=== PATIENT | female | born 1990 | race Hispanic/Latino ===

== ENCOUNTER 2018-05-21 21:56 | Emergency (ER) | payer SELFPAY ==
[2018-05-21] MEDS ORDERED: NA CHLORIDE 0.9% 1,000 ML ONE (22:54)
[2018-05-21] MEDS ORDERED: ACETAMINOPHEN 500 MG TAB ONE (22:54)
[2018-05-21 23:19] LABS: Absolute Lymphocytes (CBC) 0.5 K/uL (0.7-4.9); Absolute Monocytes 0.5 K/uL (0.1-1.3); Absolute Neutrophil 3.9 K/uL (1.8-8.0); Basophils % 0.2 % (0-1.3); Eosinophils % 0.1 % (0-4.4); MPV 8.2 fL (7.6-11.3); Monocytes % 10.6 % (3.3-12.3); RBC Red Blood Cell Count 4.46 M/uL (3.86-4.86)
[2018-05-21 23:20] LABS: Protime INR 1.35
[2018-05-21 23:33] LABS: ALT/SGPT 19 U/L (12-78); AST/SGOT 17 U/L (15-37); Albumin 3.6 g/dL (3.4-5.0); Alkaline Phosphatase 90 U/L (45-117); BUN Blood Urea Nitrogen 8 mg/dL (7-18); Bicarbonate 22 mmol/L (21-32); Bilirubin Direct < 0.1 mg/dL (0-0.2); Bilirubin Total 0.2 mg/dL (0.2-1.0); Creatine Phosphokinase 70 U/L (26-192); Glucose Level 100 mg/dL (74-106); Lipase 81 U/L (73-393); Potassium 3.2 mmol/L (3.5-5.1); Protein, Total 7.5 g/dL (6.4-8.2); Sodium Level 138 mmol/L (136-145)
[2018-05-21 23:40] LABS: Urine Blood NEGATIVE (NEG); Urine Glucose NEGATIVE (NEG); Urine Protein NEGATIVE (NEG)
[2018-05-21 23:44] LABS: Urine Bacteria <20 /HPF (<20); Urine Culture Reflex Order NOT NEEDED; Urine RBC <5 /HPF (NONE SEEN)
--- NOTE | 2018-05-22 01:59 | ER ---
Nurse's Notes [facility] Name: Meka Del Castillo Age: 27 yrs Sex: Female : 1990 Arrival Date: 05/21/2018 Time: 22:00 Bed 5 Private MD: None, None Diagnosis: Fever presenting with conditions classified elsewhere;Influenza due to other identified influenza virus Presentation: 05/21 22:22 Presenting complaint: Patient states: "today at work I felt light headed and my throat jd3 hurt, but mostly my back is hurting me really bad. I threw up before I came here.". Transition of care: patient was not received from another setting of care. Onset of symptoms was May 21, 2018. Risk Assessment: Do you want to hurt yourself or someone else? Patient reports no desire to harm self or others. Initial Sepsis Screen: Does the patient meet any 2 criteria? No. Patient's initial sepsis screen is negative. Does the patient have a suspected source of infection? No. Patient's initial sepsis screen is negative. Care prior to arrival: None. 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 - Social history:: Smoking status: Patient uses tobacco products, denies chronic smoking, but will smoke occasionally. - Ebola Screening: : Patient negative for fever greater than or equal to 101.5 degrees Fahrenheit, and additional compatible Ebola Virus Disease symptoms. Screenin:14 Abuse screen: Denies threats or abuse. Nutritional screening: No deficits noted. ea Tuberculosis screening: No symptoms or risk factors identified. Fall Risk IV access (20 points). Assessment: 22:43 General: Appears uncomfortable, Behavior is calm. Pain: Complains of pain in abdomen. ea Neuro: Level of Consciousness is awake, alert, obeys commands, Oriented to person, place, time. Cardiovascular: Patient's skin is warm and dry. Respiratory: Airway is patent Respiratory effort is even, unlabored, Respiratory pattern is regular, symmetrical. GI: Reports lower abdominal pain, upper abdominal pain. Derm: Skin is dry, Skin is pale, Skin temperature is warm. 23:41 Reassessment: Patient and/or family updated on plan of care and expected duration. Pain ea level reassessed. Patient is alert, oriented x 3, equal unlabored respirations, skin warm/dry/pink. 05/22 00:43 Reassessment: Patient and/or family updated on plan of care and expected duration. Pain ea level reassessed. Patient is alert, oriented x 3, equal unlabored respirations, skin warm/dry/pink. 01:40 Reassessment: Patient and/or family updated on plan of care and expected duration. Pain ea level reassessed. Patient is alert, oriented x 3, equal unlabored respirations, skin warm/dry/pink. 02:23 Reassessment: Patient appears in no apparent distress at this time. Patient and/or jd3 family updated on plan of care and expected duration. Pain level reassessed. Patient is alert, oriented x 3, equal unlabored respirations, skin warm/dry/pink. Vital Signs: 05/21 22:24 BP 124 / 76; Pulse 138; Resp 18 S; Temp 100.0(O); Pulse Ox 100% on R/A; Weight 99.79 kg jd3 (R); Height 5 ft. 3 in. (160.02 cm) (R); Pain 10/10; 23:15 BP 107 / 60; Pulse 106; Resp 19; Pulse Ox 99% ; rr5 05/22 00:44 BP 110 / 70; Pulse 94; Resp 18; Pulse Ox 100% on R/A; ea 02:23 BP 92 / 54; Pulse 88; Resp 17 S; Pulse Ox 98% on R/A; jd3 05/21 22:24 Body Mass Index 38.97 (99.79 kg, 160.02 cm) jd3 ED Course: 05/21 22:00 Patient arrived in ED. mr 22:00 None, None is Private Physician. mr 22:23 Triage completed. jd3 22:25 Arm band placed on. jd3 22:31 Gilson Boateng MD is Attending Physician. gs 22:34 Amber Casey, ROB is Primary Nurse. ea 22:44 Patient has correct armband on for positive identification. Bed in low position. Call ea light in reach. Side rails up X2. 22:44 Inserted saline lock: 20 gauge in right antecubital area, using aseptic technique. ea Blood collected. 05/22 01:13 CT completed. Patient tolerated procedure well. Patient moved to CT via wheelchair. vm2 Patient moved back from CT. 01:31 CT Abd/Pelvis - W/Contrast In Process Unspecified. EDMS 02:24 No provider procedures requiring assistance completed. IV discontinued, intact, jd3 bleeding controlled, No redness/swelling at site. Pressure dressing applied. Administered Medications: 05/21 22:50 Drug: Acetaminophen 1000 mg Route: PO; rr5 05/22 02:26 Follow up: Response: No adverse reaction jd3 05/21 23:12 Drug: NS 0.9% 1000 ml Route: IV; Rate: 1 bolus; Site: right antecubital; ea 05/22 02:26 Follow up: Response: No adverse reaction; IV Status: Completed infusion jd3 Outcome: 01:58 Discharge ordered by MD. nixon 02:24 Discharged to home ambulatory, with family. jd3 02:24 Condition: stable 02:24 Discharge instructions given to patient, family, Instructed on discharge instructions, follow up and referral plans. medication usage, Demonstrated understanding of instructions, follow-up care, medications, Prescriptions given X 1. 02:26 Patient left the ED. jd3 Signatures: Dispatcher [employer] ABDIRAHMAN Ector Waleska Lynch Natalia 2 Amber Casey RN RN ea Starr, Gregory, MD MD gs Davies, Jonathon, RN RN jd3 Roque, Raymond, RN RN rr5
--- NOTE | 2018-05-22 01:59 | EDPHYS ---
Physician Documentation [facility] Name: Meka Del Castillo Age: 27 yrs Sex: Female : 1990 Arrival Date: 05/21/2018 Time: 22:00 Bed 5 Private MD: None, None ED Physician Gilson Boateng HPI: 05/22 01:51 This 27 yrs old Female presents to ER via Ambulatory with complaints of Back gs Pain, Abdominal Pain. 01:51 The patient presents with pain that is acute. The symptoms are located in the low back. gs Onset: The symptoms/episode began/occurred acutely, yesterday. The pain does not radiate. Associated signs and symptoms: Pertinent positives: fever. Modifying factors: The patient symptoms are alleviated by nothing, the patient symptoms are aggravated by nothing. Severity of symptoms: At their worst the symptoms were moderate, in the emergency department the symptoms are unchanged. The patient has not experienced similar symptoms in the past. 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 - Social history:: Smoking status: Patient uses tobacco products, denies chronic smoking, but will smoke occasionally. - Ebola Screening: : Patient negative for fever greater than or equal to 101.5 degrees Fahrenheit, and additional compatible Ebola Virus Disease symptoms. ROS: 05/22 01:51 All other systems are negative. gs Exam: 01:51 Head/Face: Normocephalic, atraumatic. Eyes: Pupils equal round and reactive to light, gs extra-ocular motions intact. Lids and lashes normal. Conjunctiva and sclera are non-icteric and not injected. Cornea within normal limits. Periorbital areas with no swelling, redness, or edema. ENT: Nares patent. No nasal discharge, no septal abnormalities noted. Tympanic membranes are normal and external auditory canals are clear. Oropharynx with no redness, swelling, or masses, exudates, or evidence of obstruction, uvula midline. Mucous membranes moist. Neck: Trachea midline, no thyromegaly or masses palpated, and no cervical lymphadenopathy. Supple, full range of motion without nuchal rigidity, or vertebral point tenderness. No Meningismus. Chest/axilla: Normal chest wall appearance and motion. Nontender with no deformity. No lesions are appreciated. 01:51 Respiratory: Lungs have equal breath sounds bilaterally, clear to auscultation and percussion. No rales, rhonchi or wheezes noted. No increased work of breathing, no retractions or nasal flaring. 01:51 Skin: Warm, dry with normal turgor. Normal color with no rashes, no lesions, and no evidence of cellulitis. MS/ Extremity: Pulses equal, no cyanosis. Neurovascular intact. Full, normal range of motion. Neuro: Awake and alert, GCS 15, oriented to person, place, time, and situation. Cranial nerves II-XII grossly intact. Motor strength 5/5 in all extremities. Sensory grossly intact. Cerebellar exam normal. Normal gait. 01:51 Constitutional: The patient appears alert, awake, uncomfortable. 01:51 Cardiovascular: Rate: tachycardic, Rhythm: regular, Pulses: no pulse deficits are appreciated. 01:51 Abdomen/GI: Palpation: mild abdominal tenderness, in all quadrants. 01:51 Back: pain, that is moderate, of the lumbar area. Vital Signs: 05/21 22:24 BP 124 / 76; Pulse 138; Resp 18 S; Temp 100.0(O); Pulse Ox 100% on R/A; Weight 99.79 kg jd3 (R); Height 5 ft. 3 in. (160.02 cm) (R); Pain 10/10; 23:15 BP 107 / 60; Pulse 106; Resp 19; Pulse Ox 99% ; rr5 03 00:44 BP 110 / 70; Pulse 94; Resp 18; Pulse Ox 100% on R/A; ea 02:23 BP 92 / 54; Pulse 88; Resp 17 S; Pulse Ox 98% on R/A; jd3 05/21 22:24 Body Mass Index 38.97 (99.79 kg, 160.02 cm) jd3 MDM: 05/21 22:35 Patient medically screened. 05/22 01:51 Differential diagnosis: Epidural or Perispinal Abcess Pyelonephritis flu. Data gs reviewed: vital signs, nurses notes, lab test result(s), and as a result, I will discharge patient. Counseling: I had a detailed discussion with the patient and/or guardian regarding: the historical points, exam findings, and any diagnostic results supporting the discharge/admit diagnosis, lab results, radiology results, the need for outpatient follow up. Response to treatment: the patient's symptoms have markedly improved after treatment, patient is well hydrated. and as a result, I will discharge patient. 05/21 22:38 Order name: Basic Metabolic Panel 05/21 22:38 Order name: Blood Culture Adult (2) 05/21 22:38 Order name: CBC with Diff; Complete Time: 00:01 05/21 22:38 Order name: CPK; Complete Time: 00: 05/21 22:38 Order name: Lactate; Complete Time: 00: 05/21 22:38 Order name: LFT's; Complete Time: 00:01 05/21 22:38 Order name: Lipase; Complete Time: 00:01 05/21 22:38 Order name: Procalcitonin; Complete Time: 00:58 05/21 22:38 Order name: Protime (+inr); Complete Time: 00:01 05/21 22:38 Order name: Urine Microscopic Only; Complete Time: 00: 05/21 22:38 Order name: Strep; Complete Time: 00:01 05/21 22:38 Order name: Influenza Screen (a \T\ B); Complete Time: 00:01 05/21 22:38 Order name: Basic Metabolic Panel; Complete Time: 00:01 EDMS 05/21 23:36 Order name: Urine Dipstick--Ancillary (enter results); Complete Time: 00:01 ar5 05/21 22:38 Order name: Urine Test (obtain specimen); Complete Time: 23:13 05/21 22:38 Order name: Cardiac monitoring; Complete Time: 23:13 05/21 22:38 Order name: IV Saline Lock - Large Bore; Complete Time: 23:13 05/21 22:38 Order name: Labs collected and sent; Complete Time: 23:13 05/21 22:38 Order name: O2 Per Protocol; Complete Time: 23:13 05/21 22:38 Order name: O2 Sat Monitoring; Complete Time: 23:13 05/21 22:38 Order name: Urine Dipstick-Ancillary (obtain specimen); Complete Time: 23:13 05/21 22:38 Order name: CT Abd/Pelvis - W/Contrast 05/21 22:38 Order name: EKG - Nurse/Tech; Complete Time: 23:11 05/21 23:36 Order name: Urine --Ancillary (enter results); Complete Time: 00:01 ar5 05/21 23:45 Order name: Throat Culture EDWI Administered Medications: 05/21 22:50 Drug: Acetaminophen 1000 mg Route: PO; rr5 05/22 02:26 Follow up: Response: No adverse reaction jd3 05/21 23:12 Drug: NS 0.9% 1000 ml Route: IV; Rate: 1 bolus; Site: right antecubital; ea 05/22 02:26 Follow up: Response: No adverse reaction; IV Status: Completed infusion jd3 Disposition: 05/22/18 01:58 Discharged to Home. Impression: Fever presenting with conditions classified elsewhere, Influenza due to other identified influenza virus. - Condition is Stable. - Discharge Instructions: Fever, Adult, Influenza, Adult, [id number]. - Prescriptions for Tylenol- Codeine #4 300-60 mg Oral Tablet - take 1 tablet by ORAL route every 6 hours As needed; 6 tablet. - Medication Reconciliation Form, Thank You Letter, Antibiotic Education, Prescription Opioid Use form. - Follow up: Private Physician; When: 2 - 3 days; Reason: Re-evaluation by your physician. Signatures: Dispatcher [employer] EDWI Amber Casey RN RN ea Starr, Gregory, MD MD gs Davies, Jonathon, RN RN jd3 Roque, Raymond, RN RN rr5 Corrections: (The following items were deleted from the chart) 02: 01:58 05/22/2018 01:58 Discharged to Home. Impression: Fever presenting with conditions jd3 classified elsewhere; Influenza due to other identified influenza virus. Condition is Stable. Forms are Medication Reconciliation Form, Thank You Letter, Antibiotic Education, Prescription Opioid Use. Follow up: Private Physician; When: 2 - 3 days; Reason: Re-evaluation by your physician.
--- NOTE | 2018-05-22 12:02 | RAD REPORT ---
EXAM DESCRIPTION: CT Abdomen and Pelvis With Intravenous Contrast CLINICAL HISTORY: The patient is 27 years old and is Female; back pain; Abd pain TECHNIQUE: Axial computed tomography images of the abdomen and pelvis with intravenous contrast. S agittal and coronal reformatted images were created and reviewed. This CT exam was performed using one or more of the following dose reduction techniques: automated exposure control, adjustment of t he mA and/or kV according to patient size, and/or use of iterative reconstruction technique. COMPARISON: No relevant prior studies available. FINDINGS: Artifacts: The exam is suboptimal secondary to motion artifact. Lung bases: Unremarkable. No mass. No consolidation. ABDOMEN: Liver: Unremarkable. No mass. Gallbladder and bile ducts: No calcified stones. No ductal dilation. Pancreas: No ductal dilation. No mass. Spleen: Unremarkable. Adrenals: Unremarkable. No mass. Kidneys and ureters: Unremarkable. No solid mass. No hydronephrosis. Stomach and bowel: The stomach is moderately distended with oral contrast. Oral contrast noted t hroughout the small bowel. A moderate amount of stool is present throughout the colon. There is no mu cosal thickening or evidence of bowel obstruction. PELVIS: Appendix: The appendix is normal in caliber without surrounding inflammation. Bladder: The bladder is moderately distended. Reproductive: A 2.5 cm right adnexal low attenuating lesion is present. The uterus and left ovar y are unremarkable. ABDOMEN and PELVIS: Intraperitoneal space: Unremarkable. No free air. No significant fluid collection. Bones/joints: No acute fracture. Soft tissues: The soft tissues are normal. Vasculature: Unremarkable. No abdominal aortic aneurysm. Lymph nodes: Unremarkable. No enlarged lymph nodes. IMPRESSION: 1. No acute findings on this contrasted CT of the abdomen and pelvis to explain the pa tient's symptoms. 2. Findings suggest a right ovarian cyst. No follow-up imaging is recommended. Electronically signed by: Delores Harper MD 05/22/2018 1:35 AM CDT Due to temporary technical issues with the PACS/Fluency reporting system, reports are being signed by the in house radiologist as a courtesy to ensure prompt reporting. The interpreting radiologist is f ully responsible for the content of the report.
--- NOTE | 2018-05-23 10:32 | EKG ---
Test Date: 2018-05-21 Test Time: 22:50:38 Mis Specialist: RR MEASUREMENT RESULTS: Intervals: Rate: 102 SC: 150 QRSD: 84 QT: 342 QTc: 445 Matador: P: 32 SC: 150 QRS: 21 T: 36 INTERPRETIVE STATEMENTS: Sinus tachycardia Otherwise normal ECG No previous ECG available for comparison Electronically Signed On 05-22-18 09:37:31 CDT by Jeffery Robertson
== END 2018-05-22 02:26 | disposition home or self-care (01) ==
LOC: ER 21:56
DX: J10.1 Influenza due to other identified influenza virus with other respiratory manifestations (principal); Z72.0 Tobacco use
CPT/HCPCS: 36415; 74177; 80048; 80076; 81003; 81015; 81025; 82550; 83605; 83690; 84145; 85025; 85610; 87040; 87070; 87081; 87804; 93005; 96360; 96361; 99284; J7030; Q9967

== ENCOUNTER 2021-10-30 13:13 | Emergency (ER) | payer SELFPAY ==
--- NOTE | 2021-10-30 13:42 | EDPHYS ---
Physician Documentation [facility] Name: Meka Del Castillo Age: 31 yrs Sex: Female : 1990 Arrival Date: 10/30/2021 Time: 13:16 Bed Waiting Private MD: ED Physician Valerie Odell HPI: 10/30 18:45 This 31 yrs old Female presents to ER via Ambulatory with complaints of kb Allergic Reaction, Hives. 18:45 The patient presents with itching, rash. Onset: The symptoms/episode began/occurred 5 kb day(s) ago. Associated signs and symptoms: Pertinent positives: rash. Possible causes: The patient has no known obvious cause for the symptoms. At home the patient or guardian has treated the symptoms with nothing. Severity of symptoms: At their worst the symptoms were moderate in the emergency department the symptoms are unchanged. The patient has experienced similar episodes in the past. The patient has not recently seen a physician. Pt reports itchy rash to entire body that started a few days ago. States she has gotten this rash about 5 times before and always after visiting her mother when she returns from [place]. States she drank a drink that was brought back from [place] prior to rash starting. Normally gets a steroid shot and it goes away. 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 - Social history:: Smoking status: Patient denies any tobacco usage or history of. ROS: 18:43 Constitutional: Negative for fever, chills, and weight loss. kb 18:43 Skin: Positive for rash, diffusely. 18:43 All other systems are negative. Exam: 18:43 Constitutional: This is a well developed, well nourished patient who is awake, alert, kb and in no acute distress. Head/Face: Normocephalic, atraumatic. ENT: Moist Mucous membranes Cardiovascular: Regular rate and rhythm with a normal S1 and S2. No gallops, murmurs, or rubs. No pulse deficits. Respiratory: Respirations even and unlabored. No increased work of breathing. Talking in full sentences MS/ Extremity: Pulses equal, no cyanosis. Neurovascular intact. Full, normal range of motion. Neuro: Awake and alert, GCS 15, oriented to person, place, time, and situation. Moves all extremities. Normal gait. Psych: Awake, alert, with orientation to person, place and time. Behavior, mood, and affect are within normal limits. 18:43 Skin: rash a mild rash is noted, rash can be described as papular, and is diffusely located. Vital Signs: 13:30 BP 118 / 80; Pulse 71; Resp 16 S; Temp 97.4(TE); Pulse Ox 98% on R/A; aa5 13:30 Weight 100.7 kg (R); Height 5 ft. 0 in. (152.40 cm) (R); aa5 13:30 Body Mass Index 43.36 (100.70 kg, 152.40 cm) aa5 MDM: 13:35 Patient medically screened. kb 18:43 Data reviewed: vital signs, nurses notes. Data interpreted: Pulse oximetry: on room air kb is 98 %. Interpretation: normal. 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 Administered Medications: 13:43 Drug: SOLU-Medrol (methylPREDNISolone sodium succinate) 125 mg Route: IM; Site: left aa5 gluteus; 13:54 Follow up: Response: No adverse reaction aa5 Disposition: 19:06 STAFF ATTESTATION STATEMENT: I was immediately available onsite in the emergency sd2 department for consultation in the care of this patient. I did not see or examine this patient. Valerie Odell MD. Disposition Summary: 10/30/21 13:41 Discharge Ordered Location: Home Condition: Stable kb Diagnosis - Rash and other nonspecific skin eruption kb Followup: kb - With: Emergency Department - When: As needed - Reason: Worsening of condition Followup: kb - With: Private Physician - When: 2 - 3 days - Reason: Recheck today's complaints, Continuance of care, Re-evaluation by your physician Discharge Instructions: - Discharge Summary Sheet kb - Rash, Adult, [id number] kb Forms: - Medication Reconciliation Form kb - Thank You Letter kb - Antibiotic Education kb - Prescription Opioid Use kb Prescriptions: - Elimite 5 % Topical Cream - apply 1 application by TOPICAL route one time Wash after 12 hours.; 60 gram; kb Refills: 0, Product Selection Permitted - Pepcid 20 mg Oral Tablet - take 1 tablet by ORAL route every 12 hours for 5 days; 10 tablet; Refills: 0, kb Product Selection Permitted - Prednisone 20 mg Oral Tablet - take 1 tablet by ORAL route once daily for 5 days; 5 tablet; Refills: 0, kb Product Selection Permitted Signatures: Lee Ann Boogie, SERAC SERGIO-Brandie Pantoja, RN RN aa5 Valerie Odell MD MD sd2
[2021-10-30] MEDS ORDERED: METHYLPREDNISOLONE 125 MG INJ ONE (13:56)
--- NOTE | 2021-10-30 14:01 | ER ---
Nurse's Notes [facility] Name: eMka Del Castillo Age: 31 yrs Sex: Female : 1990 Arrival Date: 10/30/2021 Time: 13:16 Bed Waiting Private MD: Diagnosis: Rash and other nonspecific skin eruption Presentation: 10/30 13:30 Chief complaint: Patient states: Rash all over body that began 5 days ago and it's aa5 itchy. 13:30 Onset of symptoms was October 2021. aa5 13:30 Acuity: PAVEL 4 aa5 13:30 Coronavirus screen: At this time, the client does not indicate any symptoms associated aa5 with coronavirus-19. Ebola Screen: No symptoms or risks identified at this time. Initial Sepsis Screen: Does the patient meet any 2 criteria? No. Patient's initial sepsis screen is negative. Does the patient have a suspected source of infection? No. Patient's initial sepsis screen is negative. Risk Assessment: Do you want to hurt yourself or someone else? Patient reports no desire to harm self or others. 13:30 Method Of Arrival: Ambulatory aa5 Triage Assessment: 13:30 General: Appears uncomfortable, Behavior is calm, cooperative. Pain: Denies pain. EENT: aa5 No signs and/or symptoms were reported regarding the EENT system. Neuro: Level of Consciousness is awake, alert, obeys commands, Oriented to person, place, time, situation. Cardiovascular: Heart tones S1 S2 present Rhythm is regular. Respiratory: Airway is patent Respiratory effort is even, unlabored, Respiratory pattern is regular, symmetrical. GI: No signs and/or symptoms were reported involving the gastrointestinal system. : No signs and/or symptoms were reported regarding the genitourinary system. Derm: Skin is pink, warm \T\ dry. Rash noted that is itchy, red, raised, on all over body. Musculoskeletal: Range of motion: intact in all extremities. 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 - Social history:: Smoking status: Patient denies any tobacco usage or history of. Screenin:45 Abuse screen: Denies threats or abuse. Nutritional screening: No deficits noted. aa5 Tuberculosis screening: No symptoms or risk factors identified. Fall Risk None identified. Assessment: 14:00 Reassessment: Patient is alert, oriented x 3, equal unlabored respirations, skin aa5 warm/dry/pink. Vital Signs: 13:30 BP 118 / 80; Pulse 71; Resp 16 S; Temp 97.4(TE); Pulse Ox 98% on R/A; aa5 13:30 Weight 100.7 kg (R); Height 5 ft. 0 in. (152.40 cm) (R); aa5 13:30 Body Mass Index 43.36 (100.70 kg, 152.40 cm) aa5 ED Course: 13:16 Patient arrived in ED. as 13:17 Lee Ann Boogie FNP-C [facility]. kb 13:17 Valerie Odell MD is Attending Physician. kb 13:30 Arm band placed on. aa5 13:30 Patient has correct armband on for positive identification. aa5 13:56 Triage completed. aa5 14:00 No provider procedures requiring assistance completed. Patient did not have IV access aa5 during this emergency room visit. Administered Medications: 13:43 Drug: SOLU-Medrol (methylPREDNISolone sodium succinate) 125 mg Route: IM; Site: left aa5 gluteus; 13:54 Follow up: Response: No adverse reaction aa5 Medication: 14:00 VIS not applicable for this client. aa5 Outcome: 13:41 Discharge ordered by . kb 14:00 Discharged to home ambulatory, with significant other. aa5 14:00 Condition: stable 14:00 Discharge instructions given to patient, Instructed on discharge instructions, follow up and referral plans. Demonstrated understanding of instructions, follow-up care, medications, Prescriptions given X 3. 14:01 Patient left the ED. aa5 Signatures: Lee Ann Boogie FNP-C FNP-Nichelle Del Cid Audri, RN RN aa5
[2021-10-30] MEDS ORDERED: NA CHLORIDE 0.9% 250 ML ONE (14:26)
[2021-10-30 14:45] VITALS: BP 118/80; TEMP 97.4; O2SAT 98
== END 2021-10-30 14:01 | disposition home or self-care (01) ==
LOC: ER 13:13
DX: R21 Rash and other nonspecific skin eruption (principal)
CPT/HCPCS: 96372; 99283; J2930; J7050